=== PATIENT | female | born 1980 | race African-American/Black ===

== ENCOUNTER 2023-04-15 01:38 | Emergency (ER) | payer MEDICAID, OTHER ==
[2023-04-15] MEDS ORDERED: Ketorolac Tromethamine 30 MG/ML VIAL ONE (02:35)
[2023-04-15 02:52] LABS: #Basophils 0.1 10x3/uL (0.0-0.2); #Eosinphils 0.3 10x3/uL (0.0-0.5); #Monocytes 0.8 10x3/uL (0.0-1.1); #Neutrophils 4.4 10x3/uL (1.5-8.4); %Basophils 1.3 % (0.0-2.0); %Eosinophils 3.3 % (0.0-6.0); %Lymphocytes 38.7 % (18.0-47.0); %Monocytes 8.6 % (0.0-10.0); %Neutrophils 47.8 % (40.0-75.0); Hematocrit 40.8 % (34.9-44.5); Hemoglobin 13.4 g/dL (12.0-15.5); Mean Corpuscular HGB CONC 32.8 g/dL (32.0-36.0); Mean Corpuscular Hemoglobin 28.4 pg (27.0-33.0); Mean Corpuscular Volume 86.4 fl (81.6-98.3); Mean Platelet Volume 10.4 fl (7.4-10.4); Platelet Count 277 10x3/uL (150-450); RBC Distribution Width 13.4 % (11.5-14.5); Red Blood Cell (RBC) Count 4.72 10x6/uL (3.90-5.03); White Blood Cell (WBC) Count 9.3 10x3/uL (3.5-10.5)
[2023-04-15 03:09] LABS: AST (SGOT) 31 U/L (5-34); Albumin 4.2 g/dL (3.5-5.0); Alkaline Phosphatase 132 U/L (40-110); Anion Gap 14 mmol/L (10-20); BUN (Urea Nitrogen) 8 mg/dL (7.0-18.7); Bilirubin, Total 0.3 mg/dL (0.2-1.2); Calc. Creatinine Clearance 0 mL/min (70-130); Calcium 9.4 mg/dL (7.8-10.44); Carbon Dioxide 23 mmol/L (22-29); Chloride 106 mmol/L (98-107); Estimated GFR 95; Globulin 3.6 g/dL (2.4-3.5); Glucose 113 mg/dL (70-105); Protein, Total 7.8 g/dL (6.0-8.3); Sodium 139 mmol/L (136-145)
[2023-04-15 03:10] LABS: ALT (SGPT) 24 U/L (8-55)
== END 2023-04-15 03:50 | disposition home or self-care (01) ==
LOC: CSHERS 01:38
DX: M54.32 Sciatica, left side (principal); E11.9 Type 2 diabetes mellitus without complications; K21.9 Gastro-esophageal reflux disease without esophagitis; I10 Essential (primary) hypertension; Z79.899 Other long term (current) drug therapy; Z79.84 Long term (current) use of oral hypoglycemic drugs; M79.605 Pain in left leg
CPT/HCPCS: 80053; 85025; 85379; 96374; J1885

== ENCOUNTER 2023-10-03 03:04 | Emergency (ER) | payer OTHER ==
[2023-10-03] MEDS ORDERED: Aspirin Chewable 81 MG TAB ONE (03:33)
[2023-10-03 03:54] LABS: #Basophils 0.1 10x3/uL (0.0-0.2); #Eosinphils 0.3 10x3/uL (0.0-0.5); #Neutrophils 5.3 10x3/uL (1.5-8.4); %Basophils 1.2 % (0.0-2.0); %Eosinophils 2.9 % (0.0-6.0); %Lymphocytes 34.2 % (18.0-47.0); %Monocytes 9.4 % (0.0-10.0); %Neutrophils 51.7 % (40.0-75.0); Hematocrit 39.3 % (34.9-44.5); Mean Corpuscular HGB CONC 33.1 g/dL (32.0-36.0); Mean Corpuscular Hemoglobin 28.6 pg (27.0-33.0); Mean Corpuscular Volume 86.6 fl (81.6-98.3); Mean Platelet Volume 10.9 fl (7.4-10.4); Platelet Count 270 10x3/uL (150-450); RBC Distribution Width 13.4 % (11.5-14.5); Red Blood Cell (RBC) Count 4.54 10x6/uL (3.90-5.03); White Blood Cell (WBC) Count 10.2 10x3/uL (3.5-10.5)
[2023-10-03 04:07] LABS: Troponin I Less than 0.010 ng/mL (< 0.028)
[2023-10-03 04:20] LABS: Anion Gap 17 mmol/L (10-20); BUN (Urea Nitrogen) 12 mg/dL (7.0-18.7); Calc. Creatinine Clearance 0 mL/min (70-130); Calcium 9.1 mg/dL (7.8-10.44); Carbon Dioxide 21 mmol/L (22-29); Chloride 105 mmol/L (98-107); Estimated GFR 95; Glucose 127 mg/dL (70-105); Sodium 139 mmol/L (136-145)
[2023-10-03] MEDS ORDERED: hydrALAZINE 20 MG/ML VIAL ONE (06:41)
[2023-10-03] MEDS ORDERED: Acetaminophen 500 MG TAB ONE (06:41)
[2023-10-03 06:52] LABS: Troponin I 0.012 ng/mL (< 0.028)
== END 2023-10-03 07:33 | disposition home or self-care (01) ==
LOC: CSHERS 03:04
DX: I10 Essential (primary) hypertension (principal); I25.10 Atherosclerotic heart disease of native coronary artery without angina pectoris; E11.9 Type 2 diabetes mellitus without complications
CPT/HCPCS: 71045; 80048; 83880; 84484; 85025; 93005; J0360